=== PATIENT | male | born 1980 | race Hispanic/Latino ===

== ENCOUNTER 2016-12-20 23:42 | Emergency (ER) | payer MEDICAID ==
[2016-12-20 23:50] VITALS: RESP 18
--- NOTE | 2016-12-21 00:06 | C.PDOC ---
History Of Present Illness 36 year old male who presents to the ER with a complaint bilateral foot pain since yesterday. Patient reports he has a Hx of gout and notes it feels similar to previous exacerbations. Patient states he ran out of his medications; he notes he has been taking percocet with minimal relief. Denies weakness, numbness , or recent trauma. Patient is requesting a place to rest his legs for the night because he walked here. Time Seen by Provider: 12/20/16 23:53 Chief Complaint (Nursing): Lower Extremity Problem/Injury History Per: Patient History/Exam Limitations: no limitations Onset/Duration Of Symptoms: Days Current Symptoms Are (Timing): Still Present Recent travel outside of the [place]: No Past Medical History Reviewed: Historical Data, Nursing Documentation, Vital Signs Vital Signs: Last Vital Signs Temp 97.7 F 12/21/16 05:51 Pulse 73 12/21/16 05:51 Resp 18 12/21/16 05:51 BP 124/76 12/21/16 05:51 Pulse Ox 98 12/21/16 05:51 - Medical History Other PMH: Gout Surgical History: No Surg Hx Family History: States: Unknown Family Hx - Social History Hx Alcohol Use: No Hx Substance Use: Yes (OXYCODONE) - Immunization History Hx Tetanus Toxoid Vaccination: No Hx Influenza Vaccination: Yes Hx Pneumococcal Vaccination: No Review Of Systems Musculoskeletal: Positive for: Foot Pain Neurological: Negative for: Weakness, Numbness Physical Exam - Physical Exam Appears: Non-toxic, No Acute Distress Skin: Normal Color, Warm, Dry Head: Atraumatic, Normacephalic Eye(s): bilateral: Normal Inspection, EOMI Nose: Normal Oral Mucosa: Moist Neck: Normal ROM, Supple Chest: Symmetrical Cardiovascular: Rhythm Regular Respiratory: Normal Breath Sounds Extremity: Normal ROM (x4), Tenderness (Mild to left ankle and dorsal aspect of right foot), No Pedal Edema, No Calf Tenderness, No Deformity, Swelling (Mild to left ankle and dorsal aspect of right foot), No Other (Erythema, Warmth) Pulses: Left Dorsalis Pedis: Normal, Right Dorsalis Pedis: Normal Neurological/Psych: Oriented x3, Normal Speech, Normal Cognition, Normal Motor, Normal Sensation Gait: Steady ED Course And Treatment O2 Sat by Pulse Oximetry: 98 (Room air) Pulse Ox Interpretation: Normal Progress Note: Colocrys and toradol administered. On re-evaluation, pt is sleeping. No evidence of distress. On re-evaluation, pt notes pain improved. On re-evaluation, pt requests additional pain meidcation. Tramodol and crutches ordered. Pt instructed to follow up with PMD in 1-2 days. Disposition - Disposition Disposition: HOME/ ROUTINE Disposition Time: 06:00 Condition: STABLE Additional Instructions: Monitor your diet. Elevate your legs. Follow up with your doctor in 1-2 days. Prescriptions: Colchicine [Mitigare] 0.6 mg PO BID #5 capsule Indomethacin [Indocin] 25 mg PO TID #20 cap Instructions: Indomethacin (By mouth), Colchicine (By mouth), Gout (ED) Forms: [employer] (Czech) - Clinical Impression Clinical Impression: Gout - Scribe Statement The provider has reviewed the documentation as recorded by the Scriballison Sandoval All medical record entries made by the Scribe were at my direction and personally dictated by me. I have reviewed the chart and agree that the record accurately reflects my personal performance of the history, physical exam, medical decision making, and the department course for this patient. I have also personally directed, reviewed, and agree with the discharge instructions and disposition.
[2016-12-21 05:52] VITALS: BP 124/76; PULSE 73; TEMP 97.7; O2SAT 98
== END 2016-12-21 05:55 | disposition home or self-care (01) ==
LOC: C.ER 23:42 → SUPCPDRO 23:42 → C.ER 12-21 05:55
DX: M10.9 Gout, unspecified (principal)
CPT/HCPCS: 96372; 99285; J1885